=== PATIENT | male | born 1930 | race Caucasian/White ===

== ENCOUNTER 2016-08-25 06:42 | Day surgery (SDC) | payer OTHER ==
[2016-08-25 09:05] LABS: INR 1.03; PROTIME 10.9 Seconds (9.2-11.7); PTT 21.6 Seconds (22.0-36.0)
[2016-08-25 12:10] VITALS: BP 162/69
--- NOTE | 2016-08-25 12:43 | Diag Imaging Result Document ---
PROCEDURE NAME: CT GUIDED BX LIVER - 08/25/2016 CT-GUIDED LIVER BIOPSY: FINDINGS: Prior to the procedure I discussed the risks and benefits with the patient. Primary risks include: Bleeding, infection, liver injury, and lung injury. Several questions were answered. The patient then gave consent. The permit was signed. The patient was placed on the CT table with the right side lifted up. There are several faintly seen hypodense hepatic lesions. The majority of these are just beneath the dome of the diaphragm. In order to avoid the lungs, a lesion more inferiorly was targeted. A 20 gauge Temno needle and introducer were advanced into the liver without difficulty. The tip of this was along the anterior border of the small lesion in the right lobe. Six separate biopsy specimens were obtained. These were sent to pathology for analysis. The introducer needle was withdrawn. The patient had no complaints during or following the procedure. IMPRESSION: CT-guided liver biopsy with no immediate postprocedural complication. [facility]
== END 2016-08-25 12:17 | disposition home or self-care (01) ==
LOC: CT 06:42 → OPS 12:17
PROVIDERS: ATTEND Internal Medicine Hematology & Oncology
DX: K76.89 Other specified diseases of liver (principal); C61 Malignant neoplasm of prostate; Z79.899 Other long term (current) drug therapy; Z79.52 Long term (current) use of systemic steroids; Z79.02 Long term (current) use of antithrombotics/antiplatelets; Z79.1 Long term (current) use of non-steroidal anti-inflammatories (NSAID)
CPT/HCPCS: 47000; 77012; 85610; 85730; 88305; 88313